=== PATIENT | male | born 1955 | race Caucasian/White ===

== ENCOUNTER 2020-05-21 05:36 | Day surgery (SDC) | payer MEDICARE ==
[2020-05-18 10:35] LABS: COVID AG,FIA SOURCE NASOPHARYNGEAL
[~2020-05-21] VITALS: Ht 172.7 cm; Wt 64.1 kg
[2020-05-21] MEDS ORDERED: SODIUM CHLORIDE 0.9% 1,000 ML IV ONE (06:00)
[2020-05-21] MEDS ORDERED: SODIUM CHLORIDE 0.9% 1,000 ML ONE (06:14)
[2020-05-21] MEDS ORDERED: GABA-1181 PO (06:52)
[2020-05-21] MEDS ORDERED: HYDR12.54 PO (06:52)
[2020-05-21] MEDS ORDERED: ATOR20TA65 PO (06:52)
[2020-05-21] MEDS ORDERED: MONT10TA26 PO (06:52)
[2020-05-21] MEDS ORDERED: MECL-160 PO (06:52)
[2020-05-21] MEDS ORDERED: OMEP20CA12 PO (06:52)
[2020-05-21] MEDS ORDERED: FentaNYL CITRATE-PF 100 MCG/2 ML VIAL ONE (07:53)
[2020-05-21] MEDS ORDERED: MIDAZOLAM HCL 2 MG/2 ML VIAL ONE (07:53)
[2020-05-21] MEDS ORDERED: MethylPREDNISolone SOD SUCC 125 MG/2 ML VIAL IVP ONE (08:45)
[2020-05-21] MEDS ORDERED: MethylPREDNISolone SOD SUCC 125 MG/2 ML VIAL ONE (09:08)
[2020-05-21] MEDS ORDERED: BENZOCAINE 20% 50 MCG/SPRAY 57 GM ONE (17:09)
[2020-05-21] MEDS ORDERED: LIDOCAINE 2% 30 ML JELLY ONE (17:09)
[2020-05-21] MEDS ORDERED: LIDOCAINE 4% 50 ML SOLUTION ONE (17:09)
[2020-05-21] MEDS ORDERED: ALBUTEROL SULFATE 2.5 MG/0.5 ML NEB SOLUTION NEB ONE (17:09)
[2020-05-21] MEDS ORDERED: OXYGEN THERAPY IH SCH (20:00)
== END 2020-05-21 10:10 | disposition home or self-care (01) ==
LOC: SURGERY 05:36
PROVIDERS: ATTEND Internal Medicine Critical Care Medicine
DX: J38.4 Edema of larynx (principal); B37.0 Candidal stomatitis; J44.9 Chronic obstructive pulmonary disease, unspecified; I10 Essential (primary) hypertension; E78.00 Pure hypercholesterolemia, unspecified; Z98.890 Other specified postprocedural states; F17.210 Nicotine dependence, cigarettes, uncomplicated; Z20.828 Contact with and (suspected) exposure to other viral communicable diseases
CPT/HCPCS: 31623; 31624; 71045; 87015; 87070; 87101; 87205; 87206; 87220; 87426; 88108; 88312; C9803; J2250; J2930; J3010; J7030; J7613; Z7610

== ENCOUNTER → 2021-03-21 | Outpatient (CLI) | payer MEDICARE ==
[~2021-03-21] MED LIST: ATOR20TA65 PO; GLYC10.7 IH; HYDR12.54 PO; MONT10TA32 PO
== END | disposition home or self-care (01) ==
LOC: RADMN 10:08
PROVIDERS: ATTEND Internal Medicine
DX: J44.9 Chronic obstructive pulmonary disease, unspecified (principal); R91.1 Solitary pulmonary nodule; J98.4 Other disorders of lung
CPT/HCPCS: 71250